=== PATIENT | female | born 1985 | race Two or more races ===

== ENCOUNTER 2016-12-03 19:54 | Emergency (ER) | payer OTHER ==
[~2016-12-03] VITALS: Ht 162.6 cm; Wt 97.5 kg
[2016-12-03] MEDS ORDERED: NKM (20:10)
[2016-12-03] MEDS ORDERED: IBUPROFEN600 MG ORAL (20:48)
[2016-12-03 21:33] VITALS: BP 120/79
--- NOTE | 2016-12-04 08:55 | Diagnostic Imaging Report ---
Indications: Right ankle pain Technique: 3 views right ankle Findings: Comparison: None Well-corticated osseous density resides adjacent to the tip of the lateral malleolus. Soft tissues overlying the lateral malleolus are focally swollen. No acute fracture, dislocation, joint space widening, medial soft tissue swelling or other acute change identified. Small spur emanates from the plantar aspect of calcaneus. IMPRESSION: Old unfused lateral malleolar fracture Lateral soft tissue swelling, nonspecific. Superimposed acute ligamentous injury not excludable. Correlate clinically. Calcaneal enthesophyte
--- NOTE | 2016-12-05 16:36 | Emergency Room Report ---
History of Present Illness General Chief Complaint: Lower Extremity Injury Source: Patient Present Illness HPI Patient presents with complaints of right knee and right ankle pain Patient reports that a patient essentially was being transported and transferred And during that the patient was falling to the ground as the patient was helping to hold the patient up Her right ankle twisted under the patient in the right knee hit the dry wall Presents with pain 5/10 pain to the right ankle 2/10 pain to the right knee Denies any back pain denies any chest pain or shortness of breath Denies any pelvic pain Allergies: Coded Allergies: No Known Allergies (Unverified , 12/03/16) Patient History Past Medical History: see triage record Pertinent Family History: none Last Menstrual Period: 11/05/2016 : 2 Para: 2 Reviewed Nursing Documentation: PMH: Agreed, PSxH: Agreed Nursing Documentation-PMH Hx Diabetes: Yes Review of Systems All Other Systems: negative except mentioned in HPI Physical Exam Vital Signs Date Time Temp Pulse Resp B/P Pulse Ox O2 Delivery O2 Flow Rate FiO2 12/03/16 20:05 99.0 85 16 120/79 99 Room Air Sp02 EP Interpretation: reviewed, normal General Appearance: well appearing, no apparent distress Head: normocephalic, atraumatic Eyes: bilateral eye EOMI, bilateral eye PERRL ENT: normal pharynx Neck: full range of motion, supple Respiratory: lungs clear Musculoskeletal: other - Tenderness on the lateral right ankle, no obvious swelling or ecchymosis, Vazquez is also mildly uncomfortable on palpation no obvious hematoma or ecchymosis patient has range of motion intact Neurologic: alert, oriented x3 Skin: no rash Lymphatic: no adenopathy Medical Decision Making Diagnostic Impression: Primary Impression: ankle sprain Additional Impression: knee contusion ER Course Patient's imaging of the right ankle does not show any acute disease on the x- ray itself there is a soft tissue pathology however this is the patient's normal anatomy no swelling clinically was noted Was also history of an evaluation likely in line with previous fracture Patient is currently stable have limited use of her right ankle and standing and able to return with some limited use for the next 2-3 days Other X-Ray Diagnostic Results Other X-Ray Diagnostic Results : EP Interpretation: Yes Findings: no fractures, no dislocation, no soft tissue swelling, other - Evidence of the old distal fibular fracture Number of Views: 3 - Right ankle Last Vital Signs Date Time Temp Pulse Resp B/P Pulse Ox O2 Delivery O2 Flow Rate FiO2 12/03/16 21:33 99.0 16 120/79 99 Room Air 12/03/16 20:05 85 Status: improved Disposition: HOME, SELF-CARE Condition: Stable Scripts Ibuprofen* (MOTRIN*) 600 Mg Tablet 600 MG ORAL Q8H Y for For Pain, #20 TAB 0 Refills Prov: SINDY VICKERS D.O. 12/03/16 Referrals: NOT CHOSEN [facility]/,REFERRING (PCP) Patient Instructions: Ankle Sprain, Contusion Additional Instructions: Patient is provided with the discharge instructions notified to follow up with primary doctor in the next 2-3 days otherwise return to the er with any worsening symptoms. SINDY VICKERS D.O. Dec 05, 2016 16:36
== END 2016-12-03 21:33 | disposition home or self-care (01) ==
LOC: EMR 20:22
DX: S93.401A Sprain of unspecified ligament of right ankle, initial encounter (principal); S80.01XA Contusion of right knee, initial encounter; E11.9 Type 2 diabetes mellitus without complications; X58.XXXA Exposure to other specified factors, initial encounter; Y92.9 Unspecified place or not applicable
CPT/HCPCS: 99283